=== PATIENT | female | born 1995 | race Two or more races ===

== ENCOUNTER 2024-05-17 10:24 | Outpatient (CLI) | payer OTHER | END 2024-05-17 10:25 | disposition home or self-care (01) | LOC: PRENATAL 10:24 | PROVIDERS: ATTEND Obstetrics & Gynecology Maternal & Fetal Medicine | DX: O35.9XX0 Maternal care for (suspected) fetal abnormality and damage, unspecified, not applicable or unspecified (principal); O35.3XX0 Maternal care for (suspected) damage to fetus from viral disease in mother, not applicable or unspecified; O34.219 Maternal care for unspecified type scar from previous cesarean delivery; O36.1999 Maternal care for other isoimmunization, unspecified trimester, other fetus; Z3A.20 20 weeks gestation of pregnancy ==

== ENCOUNTER 2024-08-09 10:57 | Outpatient (CLI) | payer OTHER | END 2024-08-09 10:59 | disposition home or self-care (01) | LOC: PRENATAL 10:57 | PROVIDERS: ATTEND Obstetrics & Gynecology Maternal & Fetal Medicine | DX: O26.849 Uterine size-date discrepancy, unspecified trimester (principal); O36.8199 Decreased fetal movements, unspecified trimester, other fetus; O34.219 Maternal care for unspecified type scar from previous cesarean delivery; O36.1999 Maternal care for other isoimmunization, unspecified trimester, other fetus; Z3A.32 32 weeks gestation of pregnancy ==